=== PATIENT | male | born 1960 | race Caucasian/White ===

== ENCOUNTER 2019-09-22 18:47 | Emergency (ER) | payer OTHER ==
[~2019-09-22] VITALS: Ht 170.2 cm; Wt 90.7 kg
[2019-09-22 19:10] VITALS: BP_SYST 148
[2019-09-22 20:56] LABS: BASOPHILS # (AUTO) 0.1 K/uL (0.0-0.2); EOSINOPHILS # (AUTO) 0.1 K/uL (0.0-0.4); EOSINOPHILS % (AUTO) 0.9 % (0.0-4.0); HEMATOCRIT 45.3 % (36-54); HEMOGLOBIN 15.7 g/dL (14.0-18.0); LYMPHOCYTES # (AUTO) 2.2 K/uL (1.0-5.5); LYMPHOCYTES % (AUTO) 23.3 % (20.5-51.5); MEAN CORPUSCULAR HEMOGLOBIN 32 pg (27-31); MEAN CORPUSCULAR HGB CONC 35 % (32-36); MEAN CORPUSCULAR VOLUME 91 fL (79.0-98.0); MONOCYTES # (AUTO) 0.7 K/uL (0.0-1.0); MONOCYTES % (AUTO) 7.1 % (1.7-9.3); NEUTROPHILS # (AUTO) 6.3 K/uL (1.8-7.7); NEUTROPHILS % (AUTO) 67.7 % (40.0-70.0); PLATELET COUNT (AUTO) 224 K/uL (130-430); RED BLOOD CELL COUNT(AUTO) 4.98 MIL/uL (4.2-6.2); RED CELL DISTRIBUTION WIDTH 13.8 % (9.0-15.0); WHITE BLOOD COUNT (AUTO) 9.3 K/uL (4.8-10.8)
[2019-09-22 20:59] LABS: ANION GAP 7 (5-15); CALCIUM 9.1 mg/dL (8.4-11.0); CHLORIDE 106 mmol/L (98-107); CREATININE 1.09 mg/dL (0.55-1.30); GLUCOSE 113 mg/dL (70-99); POTASSIUM 3.5 mmol/L (3.5-5.1); SODIUM SERUM 140 mmol/L (136-145); UREA NITROGEN, BLOOD 6 mg/dL (8-21)
[2019-09-22 21:01] LABS: GFR AFRICAN AMERICAN 89 mL/min (>90)
[2019-09-22 21:07] LABS: ALANINE AMINOTRANSFERASE 34 U/L (12-78); ALBUMIN 3.9 g/dL (3.4-4.8); ASPARTATE AMINOTRANSFERASE 32 U/L (10-37); TOTAL BILIRUBIN 0.5 mg/dL (0.0-1.0)
[2019-09-22 22:05] VITALS: BP_SYST 140
== END 2019-09-22 22:05 | disposition home or self-care (01) ==
LOC: SED 18:47
DX: R06.02 Shortness of breath (principal); R73.9 Hyperglycemia, unspecified; N18.2 Chronic kidney disease, stage 2 (mild); R07.89 Other chest pain
CPT/HCPCS: 36415; 71045; 80053; 83880; 84484; 85025; 93005; 99285